=== PATIENT | male | born 1965 | race Caucasian/White ===

== ENCOUNTER 2025-04-12 10:48 | Outpatient (CLI) | payer OTHER, SELFPAY ==
--- NOTE | ~2025-04-12 | CT_ITS ---
CT Scan of the Chest without Contrast: Clinical Indication: Lung cancer screening, nicotine dependence Technique: Contiguous sections were acquired throughout the chest without intravenous contrast. Dose reduction technique was used on this scan by utilizing automated exposure control and iterative recon struction technique. The dose-length product (DLP) was 71.64 mGy-cm. Findings: There is no evidence of any significant mediastinal, hilar or axillary lymphadenopathy. Coronary grupo ry calcifications are present. There is no evidence of pleural or pericardial effusion. The lungs are clear. No pulmonary nodules or infiltrates are noted. Mild biapical scarring noted. Images through the upper abdomen reveal no abnormalities. Chronic compression deformities of T12 and L1 are present. Impression: Lung RADS 1: Negative. 12 month follow-up screening CT advised. Reviewed, dictated and finalized at [facility]. Impression: Lung RADS 1: Negative. 12 month follow-up screening CT advised.
--- OUTSIDE RECORDS SUMMARY | 2025-04-12 10:55 | XMS_ITS | Referral Summary ---
Author Organization [facility] [place] [address] [facility] [address] Address [address] [place] [address] Care Team Providers Care Payment Specialist Name Role Phone Art Gomez Primary Care Provider Allergies No known active allergies Medications No known medications Active Problems No known active problems Social History Tobacco Use Types Packs/Day Years Used Date Smoking Tobacco: Every Day Smokeless Tobacco: Never Personal Safety Answer Date Recorded Getting School Help Needed Not on file 11/24 Sex and Gender Information Value Date Recorded Sex Assigned at Not on file Legal Sex Male 8:01 PM CDT Gender Identity Not on file Sexual Orientation Not on file Last Filed Vital Signs Vital Sign Reading Time Taken Comments Blood Pressure 110/62 05/09/2024 9:58 AM CDT Pulse 70 05/09/2024 9:58 AM CDT Temperature 36.6 C (97.9 F) 05/09/2024 9:58 AM CDT Respiratory Rate 17 05/09/2024 9:58 AM CDT Oxygen Saturation 97% 05/09/2024 9:58 AM CDT Inhaled Oxygen Concentration - - Weight 62.1 kg (137 lb) 05/09/2024 9:58 AM CDT Height 175.3 cm (5' 9) 05/09/2024 9:58 AM CDT Body Mass Index 20.23 05/09/2024 9:58 AM CDT Plan of Treatment Not on file Insurance [facility] H[facility] Care Teams Payment Specialist Relationship Specialty Start Date End Date Art oGmez PA [address] [facility] [address] [place] [address] PCP - General Physician Shake Splitter 02/26/19
--- OUTSIDE RECORDS SUMMARY | 2025-04-12 10:55 | XMS_ITS | Clinical Summary ---
Author Organization [facility] [place] [address] [place] [address] Care Team Providers Care Stitcher Set Up Operator Automatic Name Role Phone Art Gomez Primary Care Provider Allergies No known active allergies Medications No known medications Active Problems No known active problems Surgical History Surgery Date Site/Laterality Comments NO PAST SURGERIES Medical History Medical History Date Comments No pertinent past medical history Family History Medical History Relation Name Comments Cancer Father Cancer Mother Relation Name Status Comments Father Mother Social History Tobacco Use Types Packs/Day Years Used Date Smoking Tobacco: Every Day Smokeless Tobacco: Never Personal Safety Answer Date Recorded Getting School Help Needed Not on file 11/24 Sex and Gender Information Value Date Recorded Sex Assigned at Not on file Legal Sex Male 8:01 PM CDT Gender Identity Not on file Sexual Orientation Not on file Obstetrics History Last Filed Vital Signs Vital Sign Reading [...] 05/09/2024 9:58 AM CDT Plan of Treatment Health Maintenance Due Date Last Done Comments Colon Cancer Screening-Colonoscopy 1964 Depression Screening 1964 Hepatitis C Screening 1964 Prostate Cancer Screening-PSA 1964 DTaP/Tdap/Td Vaccine (1 - Tdap) 1975 Hepatitis B Screening 1982 Regular Well Visit/Exam 18-64 1982 Pneumococcal vaccine <65 (1 of 2 - PCV) 1983 Zoster Vaccine (1 of 2) 2014 Influenza Vaccine (#1) 2025 Insurance [facility] Care Teams Stitcher Set Up Operator Automatic Relationship Specialty Start Date End Date Art Gomez PA [address] [facility] [address] [place] [address] PCP - General Physician Community Health Advisor 02/26/19
== END 2025-04-12 10:49 | disposition home or self-care (01) ==
PROVIDERS: PCP Internal Medicine; Visit Provider Internal Medicine
DX: Z12.2 Encounter for screening for malignant neoplasm of respiratory organs (principal); F17.210 Nicotine dependence, cigarettes, uncomplicated
CPT/HCPCS: 71271